=== PATIENT | female | born 1970 | race Two or more races ===

== ENCOUNTER → 2017-04-16 | Day surgery (SDC) | payer BC ==
[~2017-04-16] MED LIST: CELEXA20 MG PO; FLUOCINOLON118.28 M1 TOP; LEVOTHYROXINE25 MC1 PO; LIPITOR20 MG PO; LISINOPRIL HCTZ; LISINOPRIL10 MG PO; LOPRESSOR PO; MONTELUKAST SOD10 MG PO; NASONEX17 GM; OMEPRAZOLE40 M1 PO; ZYRTEC10 M2 PO
--- NOTE | ~2017-04-16 | EKG ---
PATIENT: DAVID GIANG UNIT #: [id number] Ventricular Rate: 71 BPM Atrial Rate: 71 BPM P-R Interval: 138 ms QRS Duration: 86 ms Q-T Interval: 414 ms QTC Calculation(Bezet): 449 ms P [place]: 17 degrees Calculated R [place]: 18 degrees Calculated T [place]: 0 degrees Diagnosis Line: Normal sinus rhythm Diagnosis Line: Normal ECG Diagnosis Line: When compared with ECG of 05-JUN-2016 09:08, Diagnosis Line: No significant change was found Diagnosis Line: Confirmed by BELLE ALSTON MD ([id number]) on Diagnosis Line: 04/16/2017 2:46:37 PM INTERPRETING MD: GAMALIEL NGUYEN
--- NOTE | ~2017-04-16 | OR ---
Unit #: [id number] #: [id number] Patient: DAVID GIANG [id number] [address] [address] [id number] MR#: [id number] NAME: DAVID GIANG ROOM: Date of Procedure: 04/16/2017 Admission Date: 04/16/2017 Surgeon: Chino Shah M.D. : 1970 Attending Physician: Chino Shah M.D. Primary Care Physician: Benito Reynolds M.D. OPERATIVE REPORT PREOPERATIVE DIAGNOSIS Complex soft tissue mass, left inner thigh. POSTOPERATIVE DIAGNOSIS 15 x 10 cm soft tissue mass multilobulated, left inner thigh. PROCEDURE PERFORMED Excision of soft tissue mass, 15 x 10 cm down to muscle fascia. ANESTHESIA General anesthesia. ESTIMATED BLOOD LOSS Minimal. IV FLUIDS 800 crystalloid. COMPLICATIONS None. INDICATIONS The patient is a 46-year-old with a soft tissue mass in her left inner thigh. She presents for excisional biopsy. DESCRIPTION OF PROCEDURE The patient was taken to the operative theater and placed in supine position. General anesthesia was induced. Her left thigh was prepped and draped. An elliptical incision was then made inclusive of the area of elevation. Incision measured 10 cm x 5 cm. I raised skin flaps both inferior and superior, identified a multilobulated soft tissue mass that went down to the muscle fascia. I excised this in its entirety. Hemostasis was obtained. I irrigated thoroughly, and then closed with interrupted 3-0 Vicryl and cristian. The patient tolerated the procedure well and sent to recovery room in good condition. Dictated by... Barbi DeweyO/modl Unit #: [id number] #: [id number] Patient: DAVID GIANG TD: 04/16/2017 13:47 JOB #: [id number] OPERATIVE REPORT Page 1 of 1 X Chino Shah MD PROCEDURE OPERATIVE NOTE
[2017-04-16 10:07] LABS: BUN/CREATININE RATIO 11.42; CALCIUM SERUM 8.8 mg/dL (8.4-10.2); CREATININE SERUM 0.7 mg/dL (0.6-1.4); GLOM FILT RATE Estimated 103.9 mL/min (>60); POTASSIUM 3.4 mmol/L (3.5-5.1)
== END | disposition home or self-care (01) ==
LOC: CSUR 08:38
PROVIDERS: Surgery
DX: E65 Localized adiposity (principal); K21.9 Gastro-esophageal reflux disease without esophagitis; E03.9 Hypothyroidism, unspecified; I10 Essential (primary) hypertension; J45.909 Unspecified asthma, uncomplicated; E78.5 Hyperlipidemia, unspecified; E66.01 Morbid (severe) obesity due to excess calories; Z68.39 Body mass index [BMI] 39.0-39.9, adult; Z91.018 Allergy to other foods; Z88.5 Allergy status to narcotic agent; Z88.8 Allergy status to other drugs, medicaments and biological substances; Z90.710 Acquired absence of both cervix and uterus; Z90.49 Acquired absence of other specified parts of digestive tract; Z98.51 Tubal ligation status; Z98.818 Other dental procedure status; Z98.890 Other specified postprocedural states; Z79.899 Other long term (current) drug therapy
CPT/HCPCS: 80048; 88304; 93005; J0690; J1100; J2250; J2405; J3010